=== PATIENT | female | born 1985 ===

== ENCOUNTER 2018-11-22 05:52 | Day surgery (SDC) | payer OTHER ==
[~2018-11-22 05:52] MED LIST: IRON 100 PLUS1 EACH; MULTIPLE VITAM1 EACH
== END 2018-11-22 14:30 | disposition home or self-care (01) ==
LOC: CIR.AMB 05:52
DX: N84.0 Polyp of corpus uteri (principal)

== ENCOUNTER 2019-11-24 16:31 | Inpatient (IN) | payer OTHER ==
[~2019-11-24] VITALS: Ht 152.4 cm; Wt 49.0 kg
[2019-12-01] MEDS ORDERED: POLY119PG PO (06:59)
[2019-12-01] MEDS ORDERED: NEURONTIN600 MG PO (06:59)
[2019-12-01] MEDS ORDERED: IBUPROFEN800 MG PO (06:59)
[2019-12-01] MEDS ORDERED: SIMETHICONE125 M1 PO (06:59)
== END 2019-12-01 08:53 | DRG 743 ==
LOC: OB/GYN 16:31
PROVIDERS: ADMIT Obstetrics & Gynecology; ATTEND Obstetrics & Gynecology
PROC: 30233N1 Transfusion of Nonautologous Red Blood Cells into Peripheral Vein, Percutaneous Approach (ICD-10-PCS; 2019-11-25)
PROC: 0UT70ZZ Resection of Bilateral Fallopian Tubes, Open Approach (ICD-10-PCS; 2019-11-28)
PROC: 0UT90ZZ Resection of Uterus, Open Approach (ICD-10-PCS; principal; 2019-11-28 13:00)
DX: D25.1 Intramural leiomyoma of uterus (principal); D25.2 Subserosal leiomyoma of uterus; D25.0 Submucous leiomyoma of uterus; Z20.828 Contact with and (suspected) exposure to other viral communicable diseases; N84.0 Polyp of corpus uteri; D50.0 Iron deficiency anemia secondary to blood loss (chronic); D55.0 Anemia due to glucose-6-phosphate dehydrogenase [G6PD] deficiency

== ENCOUNTER 2019-12-08 16:41 | Emergency (ER) | payer OTHER ==
[~2019-12-08] VITALS: Ht 152.4 cm; Wt 48.5 kg
[~2019-12-08 16:41] MED LIST changes: +IBUPROFEN800 MG PO; +NEURONTIN600 MG PO; +POLY119PG PO; +SIMETHICONE125 M1 PO
[2019-12-08] MEDS ORDERED: IRON 100 PLUS1 EACH PO (17:11)
== END 2019-12-09 07:41 | disposition home or self-care (01) ==
LOC: ER 16:41
DX: G89.18 Other acute postprocedural pain (principal); R10.2 Pelvic and perineal pain; N99.821 Postprocedural hemorrhage of a genitourinary system organ or structure following other procedure
CPT/HCPCS: 74177; Q9965

== ENCOUNTER 2019-12-13 19:19 | Inpatient (IN) | payer OTHER ==
[~2019-12-13] VITALS: Ht 152.4 cm; Wt 49.9 kg
[~2019-12-13 19:19] MED LIST changes: +IRON 100 PLUS1 EACH PO
[2019-12-15] MEDS ORDERED: POLY119PG PO (07:02)
[2019-12-15] MEDS ORDERED: FAMOTIDINE20 MG/2 M1 IV (07:02)
[2019-12-15] MEDS ORDERED: SIMETHICONE125 M1 PO (07:02)
[2019-12-15] MEDS ORDERED: CLEOCIN HCL300 MG PO (07:03)
== END 2019-12-15 09:04 | disposition home or self-care (01) | DRG 744 ==
LOC: ER 19:19 → SEC-K 20:24 → OB/GYN 20:24
PROVIDERS: ADMIT Obstetrics & Gynecology; ATTEND Obstetrics & Gynecology
PROC: 0UDB8ZZ Extraction of Endometrium, Via Natural or Artificial Opening Endoscopic (ICD-10-PCS; principal; 2019-12-13 21:00)
DX: N85.8 Other specified noninflammatory disorders of uterus (principal); N99.820 Postprocedural hemorrhage of a genitourinary system organ or structure following a genitourinary system procedure; N93.8 Other specified abnormal uterine and vaginal bleeding; Z90.710 Acquired absence of both cervix and uterus; Z20.828 Contact with and (suspected) exposure to other viral communicable diseases